=== PATIENT | female | born 1990 | race African-American/Black ===

== ENCOUNTER 2018-10-16 23:29 | Emergency (ER) | payer SELFPAY ==
[~2018-10-16] VITALS: Ht 175.3 cm; Wt 136.1 kg
[2018-10-17 02:20] VITALS: BP 129/83
[2018-10-17] MEDS ORDERED: ONDANSETRON ODT 4 MG TAB PO ONE (02:45)
[2018-10-17] MEDS ORDERED: LIDOCAINE 1% HCL (LOCAL ANESTH.) INJ 20ML MDV ID ONE (02:45)
[2018-10-17] MEDS ORDERED: MEPERIDINE HCL (50 MG/ML) 1 ML VIAL IM ONE (02:45)
[2018-10-17] MEDS ORDERED: LIDOCAINE 1% HCL (LOCAL ANESTH.) INJ 20ML MDV ONE (03:01)
== END 2018-10-17 03:33 | disposition home or self-care (01) ==
LOC: ER 23:29
DX: B07.0 Plantar wart (principal)
CPT/HCPCS: 11420; 99284; J2001; 11200

== ENCOUNTER 2019-01-11 14:08 | Emergency (ER) | payer SELFPAY ==
[~2019-01-11] VITALS: Ht 175.3 cm; Wt 136.1 kg
[2019-01-11 14:21] VITALS: BP 115/69
[2019-01-11] MEDS ORDERED: METHOCARBAMOL 500 MG TAB PO ONE (15:30)
[2019-01-11] MEDS ORDERED: KETOROLAC TROMETH 60MG/2ML VIAL IM ONE (15:30)
== END 2019-01-11 15:50 | disposition home or self-care (01) ==
LOC: ER 14:08
DX: M54.5 Low back pain (principal); F17.210 Nicotine dependence, cigarettes, uncomplicated; W01.0XXA Fall on same level from slipping, tripping and stumbling without subsequent striking against object, initial encounter; Y93.89 Activity, other specified; Y99.8 Other external cause status; Y92.89 Other specified places as the place of occurrence of the external cause
CPT/HCPCS: 72100; 96372; 99283; J1885